=== PATIENT | female | born 1965 | race Two or more races ===

== ENCOUNTER → 2017-09-30 | Outpatient (CLI) | payer OTHER | END | disposition home or self-care (01) | LOC: CFH 10:30 | PROVIDERS: ATTEND Nurse Practitioner Family | DX: Z12.31 Encounter for screening mammogram for malignant neoplasm of breast (principal); N64.89 Other specified disorders of breast | CPT/HCPCS: G0202 ==

== ENCOUNTER → 2017-10-11 | Outpatient (CLI) | payer OTHER | LOC: CFH 12:23 | PROVIDERS: ATTEND Nurse Practitioner Family | DX: N64.89 Other specified disorders of breast (principal); N65.1 Disproportion of reconstructed breast | CPT/HCPCS: G0204 ==

== ENCOUNTER → 2018-11-07 | Outpatient (CLI) | payer OTHER | END | disposition home or self-care (01) | LOC: CFH 10:43 | PROVIDERS: ATTEND Obstetrics & Gynecology | DX: Z12.31 Encounter for screening mammogram for malignant neoplasm of breast (principal) | CPT/HCPCS: 77067 ==

== ENCOUNTER 2019-06-03 13:11 | Outpatient (CLI) | payer OTHER | END 2019-06-03 23:59 | disposition home or self-care (01) | LOC: CFH 13:11 | PROVIDERS: ATTEND Nurse Practitioner | DX: M25.372 Other instability, left ankle (principal); M19.072 Primary osteoarthritis, left ankle and foot ==

== ENCOUNTER 2020-10-07 12:04 | Outpatient (CLI) | payer OTHER | END 2020-10-07 23:59 | disposition home or self-care (01) | LOC: CFH 12:04 | PROVIDERS: ATTEND Obstetrics & Gynecology | DX: Z12.31 Encounter for screening mammogram for malignant neoplasm of breast (principal) | CPT/HCPCS: 77067 ==

== ENCOUNTER 2020-10-28 13:09 | Outpatient (CLI) | payer OTHER | END 2020-10-28 23:59 | disposition home or self-care (01) | LOC: CFH 13:09 | PROVIDERS: ATTEND Obstetrics & Gynecology | DX: N63.13 Unspecified lump in the right breast, lower outer quadrant (principal); N60.02 Solitary cyst of left breast; N60.01 Solitary cyst of right breast; R93.89 Abnormal findings on diagnostic imaging of other specified body structures | CPT/HCPCS: 76642; 77062; 77066; G0279 ==

== ENCOUNTER → 2021-03-22 | Outpatient (CLI) | payer OTHER | END | disposition home or self-care (01) | LOC: CFH 10:18 | PROVIDERS: ATTEND Nurse Practitioner Family | DX: M81.0 Age-related osteoporosis without current pathological fracture (principal); M85.80 Other specified disorders of bone density and structure, unspecified site; N95.8 Other specified menopausal and perimenopausal disorders | CPT/HCPCS: 77080 ==

== ENCOUNTER 2021-04-28 10:49 | Outpatient (CLI) | payer OTHER | END 2021-04-28 23:59 | disposition home or self-care (01) | LOC: CFH 10:49 | PROVIDERS: ATTEND Obstetrics & Gynecology | DX: N60.02 Solitary cyst of left breast (principal); R92.8 Other abnormal and inconclusive findings on diagnostic imaging of breast | CPT/HCPCS: 76642; 77061; 77065; G0279 ==